=== PATIENT | female | born 1950 | race Caucasian/White ===

== ENCOUNTER → 2017-09-15 | Outpatient (CLI) | payer OTHER ==
[~2017-09-15] MED LIST: FENTANYL CITRATE/PF 100MCG/2 ML INJ ONE; GELATIN SPONGE 12-7MM ONE; LIDOCAINE HCL 1% LOCAL INJ 20 ML VIAL ONE; MIDAZOLAM HCL 2 MG/2 ML VIAL ONE
[2017-09-15 09:16] LABS: INR 0.97; PROTHROMBIN TIME 12.1 seconds (11.9-14.5)
[2017-09-15 09:17] LABS: PARTIAL THROMBOPLASTIN TIME 32.2 seconds (23.8-35.5)
--- NOTE | 2017-09-15 12:51 | Diagnostic Imaging Report ---
PROCEDURE:CT GUIDED FINE NEEDLE ASPIRATION AND CORE BIOPSIES OF A LEFT RENAL MASS COMPARISON:Outside facility CT images of the abdomen 07/11/2017. Preprocedure diagnosis: Left renal mass Post procedure diagnosis: Left renal mass Jewelry Sales Associate: Osvaldo Pardo M.D. Contrast administered: None Fluoroscopy time: None Dose-length product: 1441.96 mGy cm Sedation/anesthesia: Fentanyl 50 mcg intravenous, Versed 1 mg intravenous. The patient's heart rate and pulse oximetry were continuously monitored by the interventional radiology nurse. Blood pressure was monitored at 5 minute intervals. Estimated blood loss: Minimal Blood products administered: None Implants/grafts: None Specimens: Fine needle aspiration specimens x2, core biopsy specimens x4 Complications: No immediate Condition at completion of procedure: Stable Disposition: Radiology holding area Procedure in detail: Informed consent for the procedure was obtained from the patient and documented in the medical record after discussion of risks and benefits. The patient was placed in the prone position on the CT couch. A marker grid was placed over the left flank. Limited CT evaluation of the abdomen confirmed presence of a partially exophytic left renal mass. A suitable percutaneous approach was identified and the overlying skin of the left flank was prepped and draped in standard sterile fashion. 1% lidocaine was infiltrated into the skin and subcutaneous tissues for local anesthesia. Then, under intermittent CT guidance, a 16 gauge needle guide was advanced to the periphery of the mass lesion. A total of 2 fine needle aspiration specimens were then obtained coaxially using 20 gauge needles, with intralesional location confirmed by on-site cytopathology personnel. Subsequently, 4 core biopsy specimens were obtained using an 18 gauge, 2 cm throw core biopsy apparatus. Specimens were submitted in formalin for histologic analysis. A small amount of Gelfoam slurry was then injected through the needle guide upon removal for augmentation of hemostasis. A sterile dressing was applied. Post procedure limited CT showed no significant perinephric hematoma. The patient tolerated the procedure well without immediate complication. CONCLUSION: Successful CT-guided fine needle aspiration and core biopsies of a left renal mass without immediate complication. Dictated by: Osvaldo Pardo M.D. on 09/15/2017 at 12:53 Electronically approved by: Osvaldo Pardo M.D. on 09/15/2017 at 12:53
== END ==
LOC: CT 08:15
PROVIDERS: ATTEND Urology
DX: D41.00 Neoplasm of uncertain behavior of unspecified kidney (principal); N28.1 Cyst of kidney, acquired
CPT/HCPCS: 36415; 50200; 77012; 85049; 85610; 85730; 88112; 88305; J2001; J2250; 88172; 88173

== ENCOUNTER → 2018-02-06 | Outpatient (CLI) | payer OTHER ==
[~2018-02-06] MED LIST changes: -FENTANYL CITRATE/PF 100MCG/2 ML INJ ONE; -GELATIN SPONGE 12-7MM ONE; +IOPAMIDOL 370 MG/ML 200 ML INFUS..BTL INJ ONE; -LIDOCAINE HCL 1% LOCAL INJ 20 ML VIAL ONE; -MIDAZOLAM HCL 2 MG/2 ML VIAL ONE; +SODIUM CHLORIDE 0.9% 50ML 50 ML ONE
[2018-02-06 09:22] LABS: BLOOD UREA NITROGEN 15 mg/dL (7-26); BUN/CREATININE RATIO 20 (6-25); CREATININE, SERUM 0.75 mg/dL (0.57-1.11); EST GLOMERULAR FILTRATION RATE > 60 ML/MIN (60-)
--- NOTE | 2018-02-06 14:32 | Diagnostic Imaging Report ---
EXAM: CT Abdomen WITHOUT and WITH contrast INDICATION: \[id number] \S\[id number] \S\NEOPLASM OF KIDNEY COMPARISON: Outside ultrasound 07/25/[address] guided biopsy 09/15/2017 TECHNIQUE: Abdomen was scanned utilizing a multidetector helical scanner from the lung base to the iliac crest before and after administration of IV contrast. Coronal and sagittal reformations were obtained. Renal mass protocol was performed. Scan was performed pre-, arterial, and nephrogenic phase. IV CONTRAST: 100 mL of Isovue-370 ORAL CONTRAST: Water COMPLICATIONS: None RADIATION DOSE: Total DLP: 1639.3 mGy*cm Estimated effective dose: (DLP x 0.015 x size factor) mSv CTDIvol has been reviewed. It is below the limits set by the Radiation Protocol Committee (RPC). FINDINGS: LINES and TUBES: None. LOWER THORAX: Large hiatal hernia. Mild linear atelectasis in the medial left lower lobe adjacent to the hernia. HEPATOBILIARY: No focal hepatic lesions. No biliary ductal dilation. GALLBLADDER: No radio-opaque stones or sludge. No wall thickening. SPLEEN: No splenomegaly. PANCREAS: No focal masses or ductal dilatation. ADRENALS: No adrenal nodules KIDNEYS/URETERS: Kidneys enhance symmetrically. No hydronephrosis. 2.8 x 2.4 cm multilobulated partially exophytic mass in the interpolar region of the left kidney that shows enhancement on arterial/venous phase with some washout on the nephrogenic phase. No stones. GI TRACT: No abnormal distention, wall thickening, or evidence of bowel obstruction. LYMPH NODES: No lymphadenopathy. VESSELS: Unremarkable. Specifically, no filling defects within the main portal and renal veins. PERITONEUM / RETROPERITONEUM: No free air or fluid. BONES: Partially visualized posterior fusion of the lumbar spine. No loosening. Degenerative changes throughout the lumbar spine. No destructive lytic or blastic lesions. SOFT TISSUES: Tiny fat-containing umbilical hernia. 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 No new masses or hydronephrosis. Signed by: Dr. Hyacinth Adhikari M.D. on 02/06/2018 2:29 PM
== END ==
LOC: CT 08:02
PROVIDERS: ATTEND Urology
DX: D41.00 Neoplasm of uncertain behavior of unspecified kidney (principal)
CPT/HCPCS: 36415; 74170; 82565; 84520; Q9967

== ENCOUNTER → 2018-06-12 | Outpatient (CLI) | payer MEDICARE ==
[2018-06-12 09:22] LABS: BLOOD UREA NITROGEN 21 mg/dL (7-26); BUN/CREATININE RATIO 24 (6-25); CREATININE, SERUM 0.88 mg/dL (0.57-1.11); EST GLOMERULAR FILTRATION RATE > 60 ML/MIN (60-)
--- NOTE | 2018-06-12 10:44 | Diagnostic Imaging Report ---
EXAM: CT Abdomen with contrast INDICATION: Follow-up left renal neoplasm. COMPARISON: CT Abdomen/Pelvis 02/06/2018. TECHNIQUE: Abdomen was scanned utilizing a multidetector helical scanner from the lung base to the iliac crest before and after administration of IV contrast. Coronal and sagittal reformations were obtained. Routine protocol performed in portal venous phase. IV CONTRAST: 100 mL of Isovue-370 ORAL CONTRAST: Water COMPLICATIONS: None RADIATION DOSE: Total DLP: 451.5 mGy*cm CTDIvol has been reviewed. It is below the limits set by the Radiation Protocol Committee (RPC). Dose modulation, iterative reconstruction, and/or weight based adjustment of the mA/kV was utilized to reduce the radiation dose to as low as reasonably achievable. FINDINGS: LINES and TUBES: None. LOWER THORAX: Large hiatal hernia. Mild left basilar subsegmental atelectasis. A 3 mm solid nodule in the right lower lobe is unchanged compared to CT on 07/11/2017. HEPATOBILIARY: Left hepatic lobe cyst. Additional left hepatic lobe subcentimeter hypodensities are too small to characterize, but likely represent cysts. No biliary ductal dilation. GALLBLADDER: No radio-opaque stones or sludge. No wall thickening. SPLEEN: No splenomegaly. PANCREAS: No focal masses or ductal dilatation. Punctate 2 mm hypodensity within the pancreatic tail is unchanged and could represent a sidebranch IPM and or cyst. ADRENALS: No adrenal nodules KIDNEYS/URETERS: Kidneys enhance symmetrically. No hydronephrosis. 2.6 x 2.4 x 2.6 cm (TV x AP x SI) multilobulated partially exophytic mass in the interpolar region of the left kidney is unchanged in size from CT on 07/11/2017. No stones. GI TRACT: Partially seen. No abnormal distention, wall thickening, or evidence of bowel obstruction. Scattered colonic diverticulosis. LYMPH NODES: No lymphadenopathy. VESSELS: Unremarkable. PERITONEUM / RETROPERITONEUM: No free air or fluid. BONES: Partially visualized posterior fusion hardware extending from L2 to S1. Degenerative changes of the visualized spine. No destructive lytic or blastic lesions. Tiny fat-containing umbilical hernia. 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 No evidence of new mass or hydronephrosis. Signed by: Dr. Virgil Villafana MD on 06/12/2018 10:41 AM
== END ==
LOC: CT 07:46
PROVIDERS: ATTEND Urology
DX: D41.00 Neoplasm of uncertain behavior of unspecified kidney (principal); N28.1 Cyst of kidney, acquired
CPT/HCPCS: 36415; 74160; 82565; 84520; Q9967